=== PATIENT | male | born 1995 | race Caucasian/White ===

== ENCOUNTER 2018-04-28 10:06 | Emergency (ER) | payer OTHER ==
[~2018-04-28] VITALS: Ht 167.6 cm; Wt 60.6 kg
[2018-04-28] MEDS ORDERED: LIDOCAINE-MPF 1%, 5ML INFIL ONE (11:00)
[2018-04-28] MEDS ORDERED: LIDOCAINE-MPF 2%, 2ML ONE (11:52)
[2018-04-28] MEDS ORDERED: ACETAMINOPHEN 325 MG TABLET PO ONE (12:00)
[2018-04-28] MEDS ORDERED: ACETAMINOPHEN 325 MG TABLET ONE (12:09)
[2018-04-28 12:12] VITALS: BP 131/79
[2018-04-28] MEDS ORDERED: DIPH,PERTUSS(ACELL),TET VAC/PF 0.5 ML IM-VACC ONE ×2 (12:43→13:00)
== END 2018-04-28 13:13 | disposition home or self-care (01) ==
LOC: ED 13:00
DX: S06.0X1A Concussion with loss of consciousness of 30 minutes or less, initial encounter (principal); S01.01XA Laceration without foreign body of scalp, initial encounter; F17.210 Nicotine dependence, cigarettes, uncomplicated; W18.39XA Other fall on same level, initial encounter; Y93.59 Activity, other involving other sports and athletics played individually; Y92.488 Other paved roadways as the place of occurrence of the external cause; Y99.8 Other external cause status
CPT/HCPCS: 70450; 90471; 90715; 99284